=== PATIENT | female | born 1930 | race Caucasian/White ===

== ENCOUNTER → 2016-06-22 | Outpatient (REF) | payer MEDICARE ==
[~2016-06-22] MED LIST: ALLO100T PO; ASPI81TA85 PO; ATEN50TA2 PO; ATOR40TA PO; BISO10TA6 PO; CALC1CAP31 PO; FISH1000 PO; FISH100042 PO; ICAPCAP PO; LASI20TA PO; MULT1TAB10 PO; OMEP20CA3 PO; PROC1INJ2 IV; SUCR1SUS PO; SUCR1TAB56 PO; SYST1SOL OU; TRAM50TA2 PO; TYLE1000 PO; VITMTA PO
[2016-06-22 17:59] LABS: PERCENT SATURATION 49.2 % (13.2-37.4)
== END ==
LOC: M LAB REF 16:56
PROVIDERS: ATTEND Internal Medicine Nephrology
DX: N18.4 Chronic kidney disease, stage 4 (severe) (principal); D63.1 Anemia in chronic kidney disease

== ENCOUNTER → 2017-05-02 | Outpatient (REF) | payer MEDICARE ==
[~2017-05-02] MED LIST changes: -ATOR40TA PO; +ATOR40TA75 PO
[2017-05-02 18:33] LABS: FOLATE > 24.0 NG/ML; VITAMIN B12 LEVEL 523 PG/ML
[2017-05-02 18:37] LABS: FERRITIN 9 NG/ML (8-252); PERCENT SATURATION 27.7 % (13.2-45.0); TOTAL IRON BINDING CAPACITY 354 UG/DL (250-450)
== END ==
LOC: M LAB REF 17:13
PROVIDERS: ATTEND Internal Medicine Nephrology
DX: N18.9 Chronic kidney disease, unspecified (principal); D63.1 Anemia in chronic kidney disease

== ENCOUNTER 2017-05-30 10:48 | Outpatient (CLI) | payer MEDICARE ==
[2017-05-30] MEDS: IRON SUCROSE 25 MG in NS 50 ML IV (11:40)
[2017-05-30] MEDS: IRON SUCROSE 475 MG in NS 250 ML IV (12:51)
== END 2017-05-30 16:15 | disposition home or self-care (01) ==
LOC: M INFU 10:48
DX: D50.9 Iron deficiency anemia, unspecified (principal); Z79.891 Long term (current) use of opiate analgesic; Z79.899 Other long term (current) drug therapy; I12.0 Hypertensive chronic kidney disease with stage 5 chronic kidney disease or end stage renal disease; E78.00 Pure hypercholesterolemia, unspecified; N18.5 Chronic kidney disease, stage 5; Z86.79 Personal history of other diseases of the circulatory system; Z95.0 Presence of cardiac pacemaker
CPT/HCPCS: 96365

== ENCOUNTER 2017-06-11 08:21 | Outpatient (CLI) | payer MEDICARE ==
[2017-06-11] MEDS: diphenhydrAMINE 25 MG CAP PO (10:33)
[2017-06-11] MEDS: ACETAMINOPHEN 500 MG TAB PO (10:33)
[2017-06-11 12:29] LABS: IMMEDIATE SPIN CROSSMATCH 1 2
[2017-06-11] MEDS: FUROSEMIDE 40 MG/4 ML VIAL (J1940) IV (12:30)
== END 2017-06-11 15:25 | disposition home or self-care (01) ==
LOC: M INFU 08:21
DX: D64.9 Anemia, unspecified (principal); Z95.0 Presence of cardiac pacemaker; Z79.899 Other long term (current) drug therapy
CPT/HCPCS: 36430

== ENCOUNTER → 2017-08-02 | Outpatient (REF) | payer MEDICARE ==
[2017-08-03 19:46] LABS: IMMEDIATE SPIN CROSSMATCH 1 2
== END ==
LOC: M LAB REF 17:05
DX: D64.9 Anemia, unspecified (principal)
CPT/HCPCS: 86900

== ENCOUNTER 2017-08-03 13:59 | Outpatient (CLI) | payer MEDICARE ==
[2017-08-03] MEDS: diphenhydrAMINE 25 MG CAP PO (16:57)
[2017-08-03] MEDS: ACETAMINOPHEN 500 MG TAB PO (17:00)
[2017-08-03] MEDS: FUROSEMIDE 20 MG/2 ML VIAL (J1940) IV ×2 (19:29→22:26)
== END 2017-08-03 23:05 | disposition home or self-care (01) ==
LOC: M OPCLI4PV 13:59 → M MSPAV 14:03 → M OPCLI4PV 23:05
DX: N18.9 Chronic kidney disease, unspecified (principal); D63.1 Anemia in chronic kidney disease
CPT/HCPCS: 36430

== ENCOUNTER → 2017-09-12 | Outpatient (REF) | payer MEDICARE ==
[2017-09-13 21:09] LABS: IMMEDIATE SPIN CROSSMATCH 1 2
== END ==
LOC: M LAB REF 17:36
DX: N18.9 Chronic kidney disease, unspecified (principal); D63.1 Anemia in chronic kidney disease
CPT/HCPCS: 86900

== ENCOUNTER 2017-09-13 16:27 | Outpatient (CLI) | payer MEDICARE ==
[2017-09-13] MEDS: diphenhydrAMINE 25 MG CAP PO (18:08)
[2017-09-13] MEDS: FUROSEMIDE 40 MG/4 ML VIAL (J1940) IV (20:56)
== END 2017-09-14 00:27 | disposition home or self-care (01) ==
LOC: M OPCLI5PR 09-14 00:27 → M MS5PR 16:30
DX: N18.9 Chronic kidney disease, unspecified (principal); D63.1 Anemia in chronic kidney disease
CPT/HCPCS: 36430

== ENCOUNTER → 2017-10-11 | Outpatient (REF) | payer MEDICARE ==
[2017-10-11 19:48] LABS: FERRITIN 13 NG/ML (8-252); IRON (FE) 92 UG/DL (50-170); PERCENT SATURATION 24.5 % (13.2-45.0); TOTAL IRON BINDING CAPACITY 375 UG/DL (250-450)
== END ==
LOC: M LAB REF 17:34
DX: K31.811 Angiodysplasia of stomach and duodenum with bleeding (principal)
CPT/HCPCS: 83550

== ENCOUNTER 2017-10-29 09:39 | Outpatient (CLI) | payer MEDICARE ==
[2017-10-29] MEDS ORDERED: IRON SUCROSE 25 MG in NS 50 ML IV (10:00)
[2017-10-29] MEDS: IRON SUCROSE 475 MG in NS 250 ML IV (12:14)
== END 2017-10-29 15:45 | disposition home or self-care (01) ==
LOC: M INFU 09:39
DX: D50.9 Iron deficiency anemia, unspecified (principal); N18.4 Chronic kidney disease, stage 4 (severe); E78.5 Hyperlipidemia, unspecified; I11.0 Hypertensive heart disease with heart failure; I48.91 Unspecified atrial fibrillation; I50.9 Heart failure, unspecified; I25.2 Old myocardial infarction; Z79.891 Long term (current) use of opiate analgesic; Z79.899 Other long term (current) drug therapy; Z86.14 Personal history of Methicillin resistant Staphylococcus aureus infection; Z87.891 Personal history of nicotine dependence
CPT/HCPCS: J1756

== ENCOUNTER → 2018-02-11 | Outpatient (REF) | payer MEDICARE ==
[2018-02-11 18:46] LABS: FERRITIN 14 NG/ML (8-252); IRON (FE) 100 UG/DL (50-170); PERCENT SATURATION 30.2 % (13.2-45.0); TOTAL IRON BINDING CAPACITY 331 UG/DL (250-450)
== END ==
LOC: M LAB REF 17:15
DX: N18.9 Chronic kidney disease, unspecified (principal); D63.1 Anemia in chronic kidney disease
CPT/HCPCS: 83550

== ENCOUNTER 2018-02-27 12:18 | Outpatient (CLI) | payer MEDICARE ==
[2018-02-27] MEDS: IRON SUCROSE 25 MG in NS 50 ML IV (13:07)
[2018-02-27] MEDS: IRON SUCROSE 475 MG in NS 250 ML IV (14:15)
== END 2018-02-27 17:45 | disposition home or self-care (01) ==
LOC: M INFU 12:18
DX: D50.9 Iron deficiency anemia, unspecified (principal)
CPT/HCPCS: J1756

== ENCOUNTER → 2018-05-09 | Outpatient (REF) | payer MEDICARE ==
[2018-05-09 17:45] LABS: FERRITIN 16 NG/ML (8-252); IRON (FE) 54 UG/DL (50-170); PERCENT SATURATION 15.7 % (13.2-45.0); TOTAL IRON BINDING CAPACITY 344 UG/DL (250-450)
== END ==
LOC: M LAB REF 17:12
DX: K31.811 Angiodysplasia of stomach and duodenum with bleeding (principal)
CPT/HCPCS: 83550

== ENCOUNTER 2018-06-04 11:43 | Outpatient (CLI) | payer MEDICARE ==
[~2018-06-04] VITALS: Ht 165.1 cm; Wt 81.4 kg
[2018-06-04] VITALS (7 sets, daily range): BP systolic 118–152; BP diastolic 48–68
[~2018-06-04 11:43] MED LIST changes: +BACITAB PO; +IRON SUCROSE 25 MG in NS 50 ML IV ONE; +IRON SUCROSE 375 MG in NS 250 ML IV ONE; -LASI20TA PO; +LASI20TA3 PO
== END 2018-06-04 17:15 | disposition home or self-care (01) ==
LOC: M INFU 11:43
PROVIDERS: ATTEND Internal Medicine Nephrology
DX: D50.9 Iron deficiency anemia, unspecified (principal)
CPT/HCPCS: 96365; 96366; J1756

== ENCOUNTER → 2018-07-24 | Outpatient (REF) | payer MEDICARE ==
[~2018-07-24] MED LIST changes: -IRON SUCROSE 25 MG in NS 50 ML IV ONE; -IRON SUCROSE 375 MG in NS 250 ML IV ONE
[2018-07-24 17:53] LABS: PERCENT SATURATION 18.8 % (13.2-45.0)
== END ==
LOC: M LAB REF 17:19
PROVIDERS: ATTEND Internal Medicine Nephrology
DX: K31.811 Angiodysplasia of stomach and duodenum with bleeding (principal)

== ENCOUNTER 2018-08-09 08:48 | Outpatient (CLI) | payer MEDICARE ==
[~2018-08-09] VITALS: Ht 167.6 cm; Wt 80.0 kg
[2018-08-09 09:00] VITALS: BP 124/48
[2018-08-09] MEDS ORDERED: IRON SUCROSE 25 MG in NS 50 ML IV ONE (10:00)
[2018-08-09 10:15] VITALS: BP 129/57
[2018-08-09] MEDS ORDERED: IRON SUCROSE 225 MG in NS 250 ML IV ONE (11:00)
[2018-08-09] MEDS ORDERED: IRON SUCROSE 250 MG in NS 250 ML IV ONE (11:00)
[2018-08-09 12:00] VITALS: BP 149/63
[2018-08-09 12:30] VITALS: BP 147/67
[2018-08-09 13:30] VITALS: BP 133/63
[2018-08-09 14:36] VITALS: BP 165/72
== END 2018-08-09 14:45 | disposition home or self-care (01) ==
LOC: M INFU 08:48
PROVIDERS: ATTEND Internal Medicine Nephrology
DX: D50.9 Iron deficiency anemia, unspecified (principal)
CPT/HCPCS: 96365; 96366; J1756

== ENCOUNTER 2018-08-16 09:10 | Outpatient (CLI) | payer MEDICARE ==
[~2018-08-16] VITALS: Ht 167.6 cm; Wt 80.0 kg
[2018-08-16 09:10] VITALS: BP 142/57
[2018-08-16] MEDS ORDERED: IRON SUCROSE 250 MG in NS 250 ML IV ONE (09:30)
[2018-08-16 10:43] VITALS: BP 169/63
[2018-08-16 12:00] VITALS: BP 176/64
[2018-08-16 13:00] VITALS: BP 151/73
[2018-08-16 14:15] VITALS: BP 162/63
[2018-08-16 14:50] VITALS: BP 150/53
== END 2018-08-16 14:50 | disposition home or self-care (01) ==
LOC: M INFU 09:10
PROVIDERS: ATTEND Internal Medicine Nephrology
DX: D50.9 Iron deficiency anemia, unspecified (principal)
CPT/HCPCS: 96365; 96366; J1756